=== PATIENT | female | born 1965 | race Caucasian/White ===

== ENCOUNTER 2018-01-13 13:48 | Outpatient (REF) | payer OTHER, SELFPAY ==
[2018-01-13 19:54] LABS: Iron 94 ug/dL (50-175); Total Iron Binding Capacity 280 ug/dL (250-450); Transferrin Sat 34 % (15-50)
[2018-01-13 20:08] LABS: TSH 2.47 uIU/mL (0.358-3.74)
[2018-01-13 20:16] LABS: GGT 191 U/L (5-55)
[2018-01-15 10:43] LABS: Hep A Total Ab w Rflx IgM Negative (NEGAT); Hep B Core Antibody Negative (NEGAT)
[2018-01-15 10:50] LABS: Hepatitis C Ab w Rflx HCV PCR Negative (NEGAT)
== END 2018-01-13 14:08 ==
LOC: NCHCN 13:48
PROVIDERS: PCP Family Medicine; Visit Provider Nurse Practitioner Family
DX: E78.1 Pure hyperglyceridemia (principal); R73.9 Hyperglycemia, unspecified; N94.10 Unspecified dyspareunia; N89.8 Other specified noninflammatory disorders of vagina; Z87.19 Personal history of other diseases of the digestive system
CPT/HCPCS: 86704; 86709; 86803; 82977; 83540; 83550; 84443

== ENCOUNTER 2018-01-16 10:23 | Outpatient (REF) | payer OTHER, SELFPAY | END 2018-01-16 10:43 | LOC: LBN 10:23 | PROVIDERS: PCP Family Medicine; Visit Provider Nurse Practitioner Family | DX: R39.15 Urgency of urination (principal) | CPT/HCPCS: 87086 ==

== ENCOUNTER 2018-02-10 00:56 | Outpatient (CLI) | payer OTHER, SELFPAY ==
--- NOTE | 2018-02-10 07:18 | DI.US_ITS ---
SYMPTOM/DIAGNOSIS: ELEVATED LIVER ENZYMES R74.8 ABDOMEN ULTRASOUND: Comparison is made with 08/18/13. The liver shows increased echogenicity and decreased through transmission, consistent with fatty infiltration. The posterior portions of the liver are not well seen. The liver echogenicity appeared normal on the previous exam. No focal liver lesions or biliary dilatation is seen. The gallbladder appears normal, without evidence of stones or wall thickening. The pancreas, kidneys, spleen and aorta are unremarkable. IMPRESSION: Hepatic steatosis.
== END 2018-02-10 01:16 ==
PROVIDERS: PCP Family Medicine; Visit Provider Nurse Practitioner Family
DX: R74.8 Abnormal levels of other serum enzymes (principal); K76.0 Fatty (change of) liver, not elsewhere classified
CPT/HCPCS: 76700

== ENCOUNTER 2018-11-19 10:24 | Outpatient (REF) | payer OTHER, SELFPAY ==
[2018-11-19 20:59] LABS: Abs Immature Grans 0.03 k/cumm (0.0-0.09); Absolute Basophil Count 0.07 k/cumm (0.0-0.2); Absolute Eosinophil Count 0.39 k/cumm (0.0-0.7); Absolute Lymphocyte Count 2.84 k/cumm (1.2-3.4); Absolute Monocyte Count 0.52 k/cumm (0.11-0.7); Absolute Neutrophil Count 4.71 k/cumm (1.2-6.7); Basophils % 0.8; Eosinophils % 4.6; HCT 46.1 % (36.0-46.0); HGB 15.3 g/dL (12.0-15.5); Immature Grans % 0.4; Lymphocytes % 33.2; Mean Corp. HGB Concentration 33.2 g/dL (32.0-36.0); Mean Corpuscular Hemoglobin 29.2 pg (27.0-33.0); Mean Platelet Volume 12.1 fL (8.0-11.0); Monocytes % 6.1; Neutrophils % 54.9; Platelet Count 190 x1000/uL (130-400); RBC 5.24 m/cumm (4.00-5.20); RBC Distribution Width 12.6 % (11.7-14.6); White Blood Cell Count 8.56 k/cumm (4.4-10.8)
[2018-11-19 21:17] LABS: ALT 79 U/L (14-59); AST 38 U/L (15-37); Albumin 3.8 g/dL (3.4-5.0); Alkaline Phosphatase 116 U/L (46-116); Bilirubin, Direct 0.05 mg/dL (0.00-0.20); Bilirubin, Total 0.3 mg/dL (0.2-1.0); Glucose 122 mg/dL (70-100); Total Protein 6.8 g/dL (6.4-8.2)
[2018-11-19 21:56] LABS: Calculated LDL 159 mg/dL; Cholesterol 278 mg/dL (50-200); HDL Cholesterol 44 mg/dL (40-60); Triglyceride 375 mg/dL (30-150)
== END 2018-11-19 10:44 ==
LOC: NCHCN 10:24
PROVIDERS: PCP Nurse Practitioner Family; Visit Provider Nurse Practitioner Family
DX: Z00.00 Encounter for general adult medical examination without abnormal findings (principal); E78.1 Pure hyperglyceridemia; R73.9 Hyperglycemia, unspecified; R74.8 Abnormal levels of other serum enzymes; G47.00 Insomnia, unspecified; Z72.0 Tobacco use
CPT/HCPCS: 80061; 80076; 82947; 85025

== ENCOUNTER 2019-03-16 01:31 | Outpatient (CLI) | payer OTHER, SELFPAY ==
--- NOTE | 2019-03-16 07:45 | DI.MAMMO_ITS ---
EXAM: MG MAMMO SCREENING CLINICAL HISTORY: SCREENING, [facility], Z00.00. TECHNIQUE: Bilateral full field digital CC and MLO mammographic images were obtained with 3D tomosyn thesis and utilizing computer aided detection (CAD). COMPARISON: Available for comparison. FINDINGS: Masses/Architectural Distortion: None seen. Microcalcifications: No suspicious pleomorphic-type are seen. Skin Thickening/Nipple Retraction: None. IMPRESSION: 1. No significant interval change with no specific features of malignancy noted. 2. Unless there is more urgent need, screening mammography is recommended, as per [employer] guidelines. ACR BI-RAD Category- 1 Negative Breast Density - Category B - Scattered areas of fibroglandular density A negative radiographic report should not delay biopsy if a dominant or clinically suspicious mass is present. Up to ten percent of cancers are not identified on mammography. A negative report may reinforce clinical impression. Adenosis and dense breasts may obscure an underlying neoplasm. False positive reports average 6 to 10%. Patient will receive a letter notifying them of these results.
== END 2019-03-16 01:51 ==
PROVIDERS: PCP Nurse Practitioner Family; Visit Provider Nurse Practitioner Family
DX: Z12.31 Encounter for screening mammogram for malignant neoplasm of breast (principal)
CPT/HCPCS: 77063; 77067

== ENCOUNTER 2019-06-25 19:44 | Outpatient (CLI) | payer OTHER, SELFPAY ==
[2019-06-26 17:33] LABS: COVID-19 RT-PCR UVMMC Result Negative (Negative)
== END 2019-06-25 20:04 ==
PROVIDERS: PCP Nurse Practitioner Family; Visit Provider Physician Assistant
DX: R50.9 Fever, unspecified (principal)
CPT/HCPCS: U0003

== ENCOUNTER 2019-09-17 15:00 | Outpatient (REF) | payer OTHER, SELFPAY ==
[2019-09-23 22:34] LABS: SARS-CoV-2 RNA Undetected (Undetected); SARS-CoV-2 Specimen Source Nasopharynx
== END 2019-09-17 15:20 ==
LOC: NCHCN 15:00
PROVIDERS: PCP Nurse Practitioner Family; Visit Provider Nurse Practitioner Family
DX: Z11.59 Encounter for screening for other viral diseases (principal); Z20.828 Contact with and (suspected) exposure to other viral communicable diseases
CPT/HCPCS: U0003

== ENCOUNTER 2019-12-01 08:48 | Outpatient (REF) | payer OTHER, SELFPAY ==
[2019-12-01 19:47] LABS: Calculated LDL 52 mg/dL (<100); Cholesterol 127 mg/dL (<200); Glucose 111 mg/dL (74-106); HDL Cholesterol 55 mg/dL (40-60); Triglyceride 101 mg/dL (<150)
== END 2019-12-01 09:08 ==
LOC: NCHCN 08:48
PROVIDERS: PCP Nurse Practitioner Family; Visit Provider Nurse Practitioner Family
DX: Z00.00 Encounter for general adult medical examination without abnormal findings (principal); Z13.220 Encounter for screening for lipoid disorders; Z13.1 Encounter for screening for diabetes mellitus
CPT/HCPCS: 80061; 82947

== ENCOUNTER 2020-04-24 11:39 | Outpatient (REF) | payer OTHER, SELFPAY ==
[2020-04-24 11:46] LABS: Abs Immature Grans 0.04 10^3/uL (0.0-0.06); Absolute Basophil Count 0.05 10^3/uL (0.0-0.2); Absolute Eosinophil Count 0.21 10^3/uL (0.0-0.7); Absolute Lymphocyte Count 2.15 10^3/uL (1.2-3.4); Absolute Monocyte Count 0.53 10^3/uL (0.1-0.8); Absolute Neutrophil Count 6.46 10^3/uL (1.2-6.7); Basophils % 0.5; Eosinophils % 2.2; HCT 41.6 % (36.0-46.0); HGB 13.7 g/dL (11.2-15.7); Immature Grans % 0.4; Lymphocytes % 22.8; MCH 29.5 pg (27.0-33.0); MCHC 32.9 % (32.0-36.0); MCV 89.5 fL (80-95); MPV 11.7 fL (8.0-11.0); Monocytes % 5.6; Neutrophils % 68.5; Nucleated RBC 0 %; Platelet Count 166 10^3/uL (130-400); RBC 4.65 10^6/uL (3.93-5.22); RDW 12.3 % (11.7-14.6); RDW-SD 40.5 fL; WBC 9.44 10^3/uL (4.4-10.8)
[2020-04-24 11:49] LABS: Hemoglobin A1C 6.3 % (<5.7)
[2020-04-24 12:04] LABS: ALT 91 U/L (14-59); AST 35 U/L (15-37); Albumin 3.7 g/dL (3.4-5.0); Alkaline Phosphatase 124 U/L (46-116); BUN 15 mg/dL (7-18); Bilirubin, Total 0.4 mg/dL (0.2-1.0); Calculated LDL 121 mg/dL (<100); Chloride 102 mmol/L (98-107); Cholesterol 204 mg/dL (<200); Estimated GFR 57.78 (mL/min/1.73m2); Glucose 192 mg/dL (74-106); HDL Cholesterol 46 mg/dL (40-60); Potassium 4.1 mmol/L (3.5-5.1); Sodium 139 mmol/L (136-145); Total Protein 6.9 g/dL (6.4-8.2); Triglyceride 185 mg/dL (<150)
[2020-04-24 12:17] LABS: Amylase 543 U/L (25-115)
[2020-04-24 12:45] LABS: Lipase 9622 U/L (73-393)
== END 2020-04-24 11:40 | disposition home or self-care (01) ==
LOC: NCHCN 11:39
PROVIDERS: PCP Nurse Practitioner Family; Visit Provider Family Medicine
DX: E78.1 Pure hyperglyceridemia (principal); R73.03 Prediabetes; K76.0 Fatty (change of) liver, not elsewhere classified; R10.9 Unspecified abdominal pain
CPT/HCPCS: 80053; 80061; 83690; 82150; 83036; 85025

== ENCOUNTER 2020-04-24 17:40 | Inpatient (IN) | payer OTHER, SELFPAY ==
--- NOTE | 2020-04-24 | DI.CT_ITS ---
EXAM: CT ABDOMEN PELVIS W CLINICAL HISTORY: pain, high lipase/LFTs, h/o pancreatitis. TECHNIQUE: Imaging Protocol: Axial computed tomography images with coronal and sagittal reformatted images were created and reviewed CONTRAST MATERIAL: Intravenous: Omnipaque 350 Contrast volume:100 ml Oral: no COMPARISON: US US ABDOMEN from 02/10/2018 US US ABDOMEN from 02/10/2018 FINDINGS: ABDOMEN: Lung Bases: Minimal scarring or atelectasis. Normal heart size. Liver: Severe hepatic steatosis. No measurable mass. Gallbladder and biliary tract: No radiodense calculus or dilation. Pancreas: Normal density, no abnormal calcifications. Mild inflammation around the head. Mild dilat ation of the pancreatic duct. No mass or cyst. Spleen: Normal. Kidneys: Normal size, contour and axis. No radiodense stones or obstructive uropathy. No masses seen. Adrenal glands: No masses seen. Abdominal Aorta: Abdominal portion non-dilated. Small fatty containing umbilical hernia. Small fatty containing hernia superior to the umbilicus. PELVIS: Bladder: Symmetric distention, no gross wall thickening. Bowel: Normal appendix. Normal quantity of stool. Mild sigmoid diverticulosis. No evidence of dive rticulitis. No obstruction or bowel wall thickening. Peritoneal cavity: No ascites, collection or mesenteric inflammatory response. Bones: Sclerosis inferior right SI joint. No destructive lesions. Mild degenerative changes in the spine. Reproductive organs: Within normal limits. Lymph nodes: Unremarkable. Impression: Mild pancreatitis involving the head of the pancreas. Mild pancreatic ductal dilatation. Severe fat ty infiltration of the liver. No visible gallstones. Fatty containing umbilical hernias. RADIATION DOSE DELIVERED: 1,148.86mGy.cm Total DLP DATA REPOSITORY: All CT scans at this facility are submitted to the National Radiology Data Registry (NRDR) Dose Index Registry (DIR) with the [employer] (ACR). RADIATION OPTIMIZATION: All CT scans at this facility use at least one of these dose optimization te chniques: automated exposure control; mA and/or kV adjustment per patient size (includes targeted exa ms where dose is matched to clinical indication); or iterative reconstruction.
[2020-04-24 17:42] VITALS: BP 139/78; PULSE 76; RESP 16; TEMP 36.7; O2SAT 97
[2020-04-24 17:57] VITALS: BP 130/78; PULSE 76; RESP 16; TEMP 36.7; O2SAT 97
[2020-04-24] MEDS: Enoxaparin 40 MG/0.4 ML SYR SC (18:23)
--- NOTE | 2020-04-24 18:38 | W.PM.HP.N ---
Date of service: 04/24/20 Time of Service: 18:39 Assessment and Plan Assessment and plan (1) Pancreatitis: Status: Acute Assessment and plan: Patient is being direct admitted with acute pancreatitis given progressive pain and inability to tolerate p.o. fluids and food. Uncomfortable diagnosis of pancreatitis given her history as well as the elevated lipase and amylase. She still has her gallbladder and gallstone pancreatitis is the most likely diagnosis given that she does not drink alcohol. A passed stone was presumed to cause a previous episode as she did have 3 to 4 mm dilation of pancreatic duct on ultrasound at that time. Triglycerides were never high enough to trigger pancreatitis, only 183 this morning. She has taken no new medication could be implicated. I have ordered a CT scan I will help assess severity of pancreatitis and also assess for related complications such as a pseudocyst that could obstruct her pancreatic duct and lead to this second episode. I will also plan to get an abdominal ultrasound in the morning if we do not see clear stones on the CT scan. We will monitor her blood count and LFTs to see if there is a progression of obstructive picture. She is n.p.o. and will give her maintenance IV fluids overnight after a bolus right now before her CAT scan. (2) Nonalcoholic fatty liver disease: Status: Acute Assessment and plan: The patient does have some chronic abnormal LFTs with a previous diagnosis of nonalcoholic fatty liver disease. The elevated ALT and alkaline phosphatase thus may be chronic. (3) Essential hypertriglyceridemia: Status: Acute Assessment and plan: As above, this is mild and we cannot blame her pancreatitis on this. (4) Insomnia: Status: Inactive Assessment and plan: Zolpidem as needed. Patient was also recently diagnosed with severe obstructive sleep apnea. If she has a home CPAP unit we will try to get this for her to use here. (5) DVT prophylaxis: Status: Acute Assessment and plan: Lovenox (6) Discharge planning issues: Status: Acute Assessment and plan: Patient is currently stable on the medical floor. Should be able discharge her once were able to advance her diet if pain improves with bowel rest. History of Present Illness History of Present Illness Chief Complaint: Abdominal pain Narrative: 54-year-old woman with history of fatty liver disease and episode of pancreatitis in 2013 who presents with 5 days of progressive epigastric pain and anorexia. The pain started on the Friday prior to admission, April 21. Pain is epigastric, stabbing, and radiating around to the back bilaterally. No radiation up to the chest or down to the pelvis. Associated with abdominal bloating. Pain is worse with eating any food, no particular pattern noted. Judy tried to take Tums and Prilosec because initially she thought it was gas, but neither of these helped. The pain started as mild to moderate, but has become more severe today. She has not been able to eat anything and has had very little drink over the past 24 hours. She has not had nausea or vomiting. She did have some chills over the weekend, but no fevers. This pain is very similar to her episode of pancreatitis in 2013 when she was admitted to this hospital. That episode resolved with conservative care. She was told she likely passed a gallstone, though the stone was never seen on imaging. She does not drink any alcohol. She is a former smoker, but quit over a year ago. She denies any trauma to the abdomen. She has a history of hypertriglyceridemia, but they have never been over 500, with the highest documented level was 338 in 2018. She denies any recent change in medication. She was seen this morning by her primary care physician Estephania Kate. Labs were significant for a lipase of 9622 and amylase of 543. Alkaline phosphatase was mildly elevated 124 and her ALT was 91. Her white blood cell count was 9.44 with 68.5% neutrophils. Review of Systems Constitutional Constitutional: Reports anorexia, Denies chills, Denies fever(s), Reports headache(s), Reports lethargy and Denies weakness Eyes Eyes: Denies change in vision and Denies irritation ENT Ears, Nose, Mouth, and Throat: Denies dysphagia, Denies dizziness, Reports headache(s), Denies nasal congestion, Denies nasal discharge and Denies sore throat Cardiovascular Cardiovascular: Denies chest pain, Denies palpitations, Denies dyspnea and Denies orthopnea Respiratory Respiratory: Denies cough, Denies excessive phlegm production, Denies dyspnea and Denies wheezing Gastrointestinal Gastrointestinal: Reports belching, Denies melena, Denies hematochezia, Denies constipation, Denies dysphagia, Denies heartburn, Denies diarrhea and Denies vomiting Genitourinary Genitourinary: Denies hematuria, Denies dysuria and Denies urinary incontinence Musculoskeletal Musculoskeletal: Denies arthralgias Integumentary/Breasts Skin/Breast: Denies rash and Denies skin ulcer Neurologic Neurologic: Denies dizziness, Reports headache(s), Denies sensory deficit and Denies weakness Psychiatric Psychiatric: Denies mood swings Endocrine Endocrine: Denies palpitations Hematologic/Lymphatic Hematologic/Lymphatic: Denies easy bleeding Allergic/Immunologic Allergic/Immunologic: Denies wheezing PFSH Medical History (Updated 04/24/20 @ 19:00 by Robby No) Dyspareunia, female Insomnia Migraine OCCASIONAL; MSG Nonalcoholic fatty liver disease Pancreatitis a. First episode, uncertain etiology. Tobacco use Vaginal atrophy Surgical History (Updated 04/24/20 @ 18:52 by Robby No) section x 3 Tonsillectomy and adenoidectomy Family History (Updated 04/24/20 @ 18:55 by Robby No) Mother Essential hypertension Anxiety Depression Mental disorder Chronic obstructive lung disease Father Heart disease Myocardial infarction Grandfather Heart disease Grandmother Neoplasm LUNG Son Diabetes Essential hypertension Pancreatitis, alcoholic, acute Social History (Updated 04/24/20 @ 19:10 by Robby No) Smoking/Tobacco Use Status: Former Tobacco Use Quit Date: 12/16/18 Smoking risk assessment performed?: Yes Alcohol Intake: current Alcohol Intake frequency: holidays/special occasions only Alcohol type: beer and wine Drug use: Never Substance use type: does not use Do you feel safe at home: Yes Do you feel safe in your relationship?: Yes Additional Social history: Patient lives with her and son. 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 History History 4 Para 3 Hx # Term Pregnancies Multiple births Hx # Pregnancies Ectopic pregnancies AB induced Hx Number of Living Children AB spontaneous Meds Home Medications and Allergies Home Medications Medication Instructions Recorded Confirmed Type zolpidem 5 mg PO HS PRN #90 tab 03/17/17 04/24/20 History estradiol [Vagifem] 10 mcg VAGINAL DIRECTED 04/24/20 04/24/20 History Allergies Allergy/AdvReac Type Severity Reaction Status Date / Time erythromycin base AdvReac Intermediate vomit Verified 04/24/20 17:49 Exam Narrative Exam Narrative: GEN: Alert and oriented, pleasent and cooperative, gives linear history. No acute distress at rest. HEENT: Head atraumatic. Conjunctiva clear, no icterus. PEERL, EOMI. no rhinorrhea. MMM, OP benign. Neck is supple with no masses or lymphadenopathy, trachea midline LUNGS: CTAB with normal effort CV: RRR with no murmurs, gallops, or rubs. ABD: +BS. soft, with mild gaseous distention. Tender across the epigastrium, no guarding or rebound. Mild suprapubic tenderness. EXT: no cyanosis, clubbing, or edema MSK: No joint redness or swelling NEURO: CN 2-12 grossly intact. Normal movement of 4 extremities. Normal speech and coordination SKIN: No rashs or open wounds. PSYCH: normal mood and affect Results See lab results from this morning in the record, pertinent abnormalities noted in HPI. Last Vital Signs Temp 36.7 C 04/24/20 17:57 Pulse 76 04/24/20 17:57 Resp 16 04/24/20 17:57 BP 130/78 04/24/20 17:57 Pulse Ox 97 04/24/20 17:57 COVID-19 Screening Have you, or household traveled for leisure in last 14 days?: No Had IN PERSON contact w/suspected or confirmed C-19 person: No
[2020-04-24] MEDS: Omnipaque 350 MG/ML 100 ML BTL IJ (19:04)
[2020-04-24] MEDS: Normal Saline - Diluent 50 ML VIAL IV (19:05)
[2020-04-24 19:39] LABS: Influenza A PCR Negative (Negative); Influenza B PCR Negative (Negative); RSV PCR Negative (Negative)
--- NOTE | 2020-04-24 19:39 | DI.VRAD_ITS ---
PROCEDURE INFORMATION: Exam: CT Abdomen And Pelvis With Contrast Exam date and time: 04/24/2020 7:00 PM Age: 54 years old Clinical indication: Pain and abnormal findings; Abnormal lab test; Elevated lipase and other: Elevated lfts; Abdominal pain; Generalized; Prior surgery; Surgery date: 6+ months; Surgery type: 3 c-sections; Patient HX: H/o pancreatitis TECHNIQUE: Imaging protocol: Computed tomography of the abdomen and pelvis with contrast. Total images: 1192 Radiation optimization: All CT scans at this facility use at least one of these dose optimization techniques: automated exposure control; mA and/or kV adjustment per patient size (includes targeted exams where dose is matched to clinical indication); or iterative reconstruction. Contrast material: OMNIPAQUE 350; Contrast volume: 100 ml; Contrast route: INTRAVENOUS (IV); COMPARISON: SC US ABDOMEN 02/10/2018 1:19 PM FINDINGS: Lungs: Patchy scarring or atelectasis in the lung bases. Heart: Mild cardiomegaly. Mediastinal space: The visualized distal esophagus is normal. Liver: Normal contour. No mass lesions. No intrahepatic biliary ductal dilatation. Moderate fatty infiltration of the liver. Mild fatty sparing around the gallbladder fossa . Gallbladder and bile ducts: Normal. No calcified stones. No ductal dilation. Pancreas: There is faint stranding around the pancreatic head suspicious for mild pancreatitis. No fluid collections. No signs of pancreatic necrosis. Slight dilatation of the pancreatic duct measuring 4 mm diameter at the pancreatic neck. No obstructive stones or mass lesions are evident. Spleen: Normal. No splenomegaly. Adrenal glands: Normal. No adrenal mass. Kidneys and ureters: No acute abnormalities. No hydronephrosis or hydroureter. No urinary tract stones are identified. Stomach and bowel: The stomach is largely contracted without gross abnormality. The small bowel is normal with no evidence of obstruction. Mild distal colonic diverticulosis without focal changes of diverticulitis. Question slight wall thickening in the distal descending colon and sigmoid colon which may relate to its contracted status, cannot exclude mild colitis in these distributions. Appendix: The appendix is normal in caliber and demonstrates no evidence of appendicitis. Intraperitoneal space: No free fluid or air. Vasculature: No acute process. No abdominal aortic aneurysm. Lymph nodes: No adenopathy. Urinary bladder: Unremarkable as visualized. Reproductive: Unremarkable as visualized. Bones/joints: No acute osseous abnormalities. Asymmetric right SI joint sclerosis and marginal spurring, likely osteoarthritic in nature. Soft tissues: Small fatty umbilical hernia and small supraumbilical fatty hernia with no bowel herniation or strangulation. IMPRESSION: 1. Faint peripancreatic stranding around the pancreatic head suspicious for mild pancreatitis. No evidence of pancreatic necrosis. No fluid collections. Slight pancreatic ductal dilatation. 2. Moderate fatty infiltration of the liver with sparing around the gallbladder fossa. 3. Mild cardiomegaly without evidence of decompensation. 4. Question slight colonic wall thickening in the descending colon and rectum although this may relate to its contracted status. Cannot exclude a mild element of colitis. 5. Small fatty umbilical and supraumbilical hernias with no bowel herniation or strangulation. Dictated and Authenticated by: Robby Herrera MD. Ordering:JARETH Bustamante MD
[2020-04-24 19:41] LABS: COVID-19 PCR Negative (Negative)
[2020-04-24] MEDS: Lactated Ringers 1,000 ML 500 ML IV (20:02)
[2020-04-24] MEDS: MORPHine 2 MG/ML SYR IVP ×2 (20:07→22:34)
[2020-04-24] MEDS: POTASSIUM CHLORIDE/D5-0.45NACL 1,000 ML 30 MEQ IV (21:15)
[2020-04-24 23:50] VITALS: BP 114/69; PULSE 63; RESP 17; TEMP 36; O2SAT 95
[2020-04-25] MEDS: MORPHine 2 MG/ML SYR IVP ×2 (02:23→07:58)
[2020-04-25] MEDS: Zolpidem 5 MG TAB PO ×2 (02:27→21:02)
--- NOTE | 2020-04-25 06:00 | DI.US_ITS ---
EXAM: US ABDOMEN CLINICAL HISTORY: pancreatitis, biliary stones? TECHNIQUE: Ultrasound abdomen performed using standard protocol. COMPARISON: CT CT ABDOMEN PELVIS W from 04/24/[address] ABDOMEN PELVIS W from 04/24/2020 FINDINGS: The liver shows marked fatty infiltration. No focal liver lesions or biliary dilatation is seen. No gallstones or gallbladder wall thickening is present. The kidneys and spleen are unremarkable. The re is no visible abnormality of the pancreas. There is no ascites. IMPRESSION: Fatty liver. No evidence of gallstones. No biliary dilatation. DATA REPOSITORY:
[2020-04-25 06:35] LABS: Abs Immature Grans 0.03 10^3/uL (0.0-0.06); Absolute Basophil Count 0.04 10^3/uL (0.0-0.2); Absolute Eosinophil Count 0.29 10^3/uL (0.0-0.7); Absolute Lymphocyte Count 2.86 10^3/uL (1.2-3.4); Absolute Monocyte Count 0.58 10^3/uL (0.1-0.8); Absolute Neutrophil Count 4.41 10^3/uL (1.2-6.7); Basophils % 0.5; Eosinophils % 3.5; HCT 38.7 % (36.0-46.0); HGB 13.1 g/dL (11.2-15.7); Immature Grans % 0.4; Lymphocytes % 34.8; MCH 29.6 pg (27.0-33.0); MCHC 33.9 % (32.0-36.0); MCV 87.6 fL (80-95); MPV 11.2 fL (8.0-11.0); Monocytes % 7.1; Neutrophils % 53.7; Nucleated RBC 0 %; Platelet Count 157 10^3/uL (130-400); RBC 4.42 10^6/uL (3.93-5.22); RDW 12.3 % (11.7-14.6); RDW-SD 39.8 fL; WBC 8.21 10^3/uL (4.4-10.8)
[2020-04-25 07:01] LABS: ALT 66 U/L (14-59); AST 29 U/L (15-37); Albumin 3.2 g/dL (3.4-5.0); Alkaline Phosphatase 108 U/L (46-116); Anion Gap 9.2 mmol/L (3-11); BUN 15 mg/dL (7-18); Bilirubin, Total 0.5 mg/dL (0.2-1.0); CO2 25.8 mmol/L (21.0-32.0); CREATININE 0.9 mg/dL (0.55-1.02); Calcium 8.8 mg/dL (8.5-10.1); Chloride 104 mmol/L (98-107); Glucose 123 mg/dL (74-106); Potassium 4.1 mmol/L (3.5-5.1); Sodium 139 mmol/L (136-145); Total Protein 6.6 g/dL (6.4-8.2)
[2020-04-25 07:45] VITALS: BP 115/63; PULSE 67; RESP 17; TEMP 36.4; O2SAT 96
--- NOTE | 2020-04-25 09:09 | INITIAL_ITS ---
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 CURRENT FUNCTIONAL STATUS:: Judy is lying in bed when CM meets with her. She is pleasant in interaction and forthcoming with information. She reports eating jell-o today, but vomitting it back up, as well as not understanding her treatment plan. CM talked to MD, RNCC and Judy's daughter, Martha re: treatment plan, current medications and idiopathic pancreatitis. Dr. Amaya connected with Judy and Martha and Carmen; RNCC discussed current medications orders with Judy to support her sleep. CM continues to follow. ADVANCE DIRECTIVES:: None on file at [facility]. Has patient been provided with info about the portal/API?: Yes Did the patient sign up for the portal?: Yes (Previously) CODE STATUS:: Full Code INSURANCE COVERAGE / FINANCIAL ISSUES:: [employer] CURRENT HOME/COMMUNITY SERVICES/EQUIPMENT:: No current services or equipment. PRIMARY CARE PHYSICIAN:: Sanaz Escobar NP POTENTIAL DISCHARGE NEEDS:: Follow up appointment with PCP. PATIENT/FAMILY EDUCATION NEEDS:: Review discharge instructions, discuss Ask Me Three. ANTICIPATED BARRIERS TO DISCHARGE:: None identified. TRANSPORTATION:: Via private vehicle with family. PLAN:: Judy will return home when ready per MD. She will follow up with her PCP and plan of care as prescribed. She will transport via private vehicle with family.
[2020-04-25] MEDS: Ondansetron 4 MG/2 ML VIAL IVP (09:24)
[2020-04-25] MEDS: Normal Saline Flush 10 ML SYR IVP ×2 (09:25→13:10)
--- NOTE | 2020-04-25 12:48 | W.PM.PROGNOT ---
Date of Service Date of service: 04/25/20 Time of Service: 12:48 Assessment and Plan Assessment and plan (1) Nonalcoholic fatty liver disease: Status: Acute Assessment and plan: Known dx. ALT 91 on admission (previously as high as 147 in 2018). Now 66. AST and Bili are normal. (2) Pancreatitis: Status: Acute Assessment and plan: Abd US w/o gallstones or ductal dilitation. OK to advance to clear liquids as tolerated. PRN morphine is controlling pain. Zofran or compazine for nausea. Qualifiers: Chronicity: acute Pancreatitis type: idiopathic Acute pancreatitis complication: no infection or necrosis Qualified Code(s): K85.00 - Idiopathic acute pancreatitis without necrosis or infection (3) Essential hypertriglyceridemia: Status: Acute Assessment and plan: Triglycerides 185. Previous high in [facility] records of 375 in 11/2018. Encourage low fat / Heart Healthy diet. Subjective Subjective Patient reports: feels better, pain is less, nausea and afebrile; denies vomiting and shortness of breath Interval history since last seen: She tried a bite of jello at lunch and developed nausea. Exam Const General: cooperative and no acute distress Nutritional Appearance: obese Orientation: alert and oriented x3 Resp Effort & Inspection: normal respiratory effort Auscultation: clear to auscultation bilaterally Cardio Rate: regular rate Rhythm: regular rhythm Heart Sounds: S1 normal and S2 normal GI Inspection: obesity Palpation: soft and tender in the epigastrum; with no rebound tenderness Extrem General: no pedal edema and no calf tenderness Objective Last Vital Signs Temp 36.4 C L 04/25/20 07:45 Pulse 67 04/25/20 07:45 Resp 17 04/25/20 07:45 BP 115/63 04/25/20 07:45 Pulse Ox 96 04/25/20 07:45 Laboratory Results - last 24 hr 04/24/20 04/25/20 04/25/20 18:40 06:18 06:18 WBC 8.21 RBC 4.42 Hgb 13.1 Hct 38.7 MCV 87.6 MCH 29.6 MCHC 33.9 RDW 12.3 Plt Count 157 MPV 11.2 H Immature Gran % 0.4 Neutrophils % 53.7 Lymphocytes % 34.8 Monocytes % 7.1 Eosinophils % 3.5 Basophils % 0.5 Nucleated RBC % 0 Absolute Neutrophils 4.41 Absolute Lymphocytes 2.86 Absolute Monocytes 0.58 Absolute Eosinophils 0.29 Absolute Basophils 0.04 Sodium 139 Potassium 4.1 Chloride 104 Carbon Dioxide 25.8 Anion Gap 9.2 BUN 15 Creatinine 0.9 Estimated GFR/1.73 m2 >= 60.00 Glucose 123 H Calcium 8.8 Total Bilirubin 0.5 AST 29 ALT 66 H Alkaline Phosphatase 108 Total Protein 6.6 Albumin 3.2 L COVID-19 Source Nasopharyx SARS-CoV-2 (PCR) Negative Influenza Type A (PCR) Negative Influenza Type B (PCR) Negative RSV (PCR) Negative
[2020-04-25] MEDS: Prochlorperazine 10 MG/2 ML VIAL IVP (13:09)
[2020-04-25] MEDS: POTASSIUM CHLORIDE/D5-0.45NACL 1,000 ML 120 MEQ IV ×2 (13:23→21:02)
[2020-04-25 15:26] VITALS: BP 125/63; PULSE 69; RESP 18; TEMP 36.9; O2SAT 96
--- NOTE | 2020-04-25 15:38 | PHA.REVIEW ---
Pharmacy Admission Review - Admission Clinical Review (Last Updated 04/24/20 @ 18:55 by Robby No) Discharge planning issues (Acute) DVT prophylaxis (Acute) Nonalcoholic fatty liver disease (Acute) Pancreatitis (Acute 08/23/13) Essential hypertriglyceridemia (Acute) erythromycin base Adverse Reaction (Intermediate, Verified 04/24/20 17:49) vomit Height 5 ft 3 in Weight 94.347 kg - Renal Dosing Renal Dosing: BUN 15 mg/dL (7-18) 04/25/20 06:18 Creatinine 0.9 mg/dL (0.55-1.02) 04/25/20 06:18 Medications needing adjustments: Reviewed - Anticoagulation Anticoagulation: Hgb 13.1 g/dL (11.2-15.7) 04/25/20 06:18 Hct 38.7 % (36.0-46.0) 04/25/20 06:18 Plt Count 157 10^3/uL (130-400) 04/25/20 06:18 Creatinine 0.9 mg/dL (0.55-1.02) 04/25/20 06:18 DVT Prohphylaxis: Reviewed Medications: Enoxaparin - Opiate Usage Evaluate Pain Scale/Pains Meds: Reviewed Scheduled Bowel Reg ordered if on Opiates?: No (monitor) - Relevant Labs Sodium 139 mmol/L (136-145) 04/25/20 06:18 Potassium 4.1 mmol/L (3.5-5.1) 04/25/20 06:18 Chloride 104 mmol/L (98-107) 04/25/20 06:18 Electrolytes, C-Reactive P, ESR: Reviewed (KCl/D5-1/2NS currently running at 120mls/hr) - DM Control DM Control: Glucose 123 mg/dL (74-106) H 04/25/20 06:18 - Heart Failure/[place] EF%, DAQUAN's, B-Blockers, Diuretics: N/A - BP Control BP Control: Blood Pressure 125/63 Blood Pressure 115/63 If elevated: N/A - Qtc Review If Elevated: N/A - IV to PO Switch IV Medications: Reviewed - Home Meds Home Med List reviewed: Intervened Relevent Home Meds Not ordered & why?: Trazodone; Zolpidem was most recently filled in October of last year for a 5 day supply with directions that state take as needed while acclimating to CPAP, fills trazodone regularly -- dc'd zolpidem and added trazodone to home med list - Current meds Current Medication Order Review: Reviewed - Comments Comments/Follow Ups: advancing diet today, morphine PRN for pain control
--- NOTE | 2020-04-25 16:40 | CHAPLAIN ---
Judy was sitting up in bed when I visited. She said she is feeling better this afternoon. She's been in touch with her family. Her coworkers from [employer] have sent her thorne. I 'll continue to visit.
[2020-04-25] MEDS: Enoxaparin 40 MG/0.4 ML SYR SC (18:00)
[2020-04-25 23:45] VITALS: BP 124/74; PULSE 52; RESP 17; TEMP 36.2; O2SAT 97
[2020-04-26] MEDS: POTASSIUM CHLORIDE/D5-0.45NACL 1,000 ML 120 MEQ IV (05:02)
[2020-04-26 07:51] VITALS: BP 121/81; PULSE 61; RESP 18; TEMP 36.3; O2SAT 96
--- NOTE | 2020-04-26 09:26 | W.PM.DS.N ---
Date of service: 04/26/20 Time of Service: 09:26 DS: Diagnosis Discharge Diagnosis (1) Nonalcoholic fatty liver disease: Status: Acute (2) Pancreatitis: Status: Acute (3) Essential hypertriglyceridemia: Status: Acute Discharge Plan Disposition Patient Disposition: HOME Condition: Good Discharge Details Reason For Visit: PANCREATITIS Admit Date/Time: 04/24/20 17:40 Admit Provider: Robby No Attending Provider: Robby No Primary Care Provider: Sanaz Escobar Hospital Course Hospital Course: This is a 54-year-old woman with history of fatty liver disease and episode of pancreatitis in 2013 who presented with 5 days of progressive epigastric pain and anorexia. The pain started on the Friday prior to admission, April 21. Pain was epigastric, stabbing, and radiating around to the back bilaterally. No radiation up to the chest or down to the pelvis. Associated with abdominal bloating. Pain worse with eating any food, no particular pattern noted. Judy tried to take Tums and Prilosec because initially she thought it was gas, but neither of these helped. The pain started as mild to moderate, but has become more severe. She has not had nausea or vomiting. She did have some chills over the weekend, but no fevers. She described the pain as very similar to her episode of pancreatitis in 2013 when she was admitted to this hospital. That episode resolved with conservative care. She was told she likely passed a gallstone, though the stone was never seen on imaging. A dilitation of the common bile duct was noted. She does not drink any alcohol. She is a former smoker, but quit over a year ago. She denied any trauma to the abdomen. She has a history of hypertriglyceridemia, but they have never been over 500, with the highest documented level was 338 in 2018. She denied any recent change in medication. She has been taking oral estrogen for appx 6 months mainly for vaginal dryness. She was seen this morning by her primary care physician Estephania Kate. Labs were significant for a lipase of 9622 and amylase of 543. Alkaline phosphatase was mildly elevated 124 and her ALT was 91. Her white blood cell count was 9.44 with 68.5% neutrophils. After admission, CT abd and pelvis showed mild pancreatitis involving the head of the pancreas. Mild pancreatic ductal dilatation. Severe fatty infiltration of the liver. No visible gallstones. Fatty containing umbilical hernias. No common bile duct dilatation noted. US of abd showed fatty liver. No evidence of gallstones. No biliary dilatation With bowel rest, then advancement of diet to clear liquids, her pain resolved. On AM of discharge her diet was advanced further. On the AM of discharge she had not required any pain medication for 24 hours. Regarding the etiology of her pancreatitis, consideration given to estrogen as a factor. She is willing to stop oral estrogen; has found little benefit in improving her vaginal dryness. She will discuss alternatives with her PCP. Follow up with PCP in 1-2 weeks. Home Meds and New Rx's Prescriptions: Continued trazodone 100 mg tablet 100 mg PO HS RF: 0 Discontinued estradiol [Vagifem] 10 mcg Tablet 10 mcg VAGINAL DIRECTED RF: 0 Discharge Instructions Instructions: Pancreatitis (DC) Stand Alone Forms: Nursing Discharge Form Referrals: Sanaz Escobar [Primary Care Provider] - Activity:: Activity as Tolerated Equipment/Supplies:: No Equipment Needed Diet:: Heart Healthy Discharge Orders Discharge Orders: Discharge Order (Routine); Ordered 04/26/20 Ordered By: Miky Amaya DS: Summary Time Spent with Patient providing and/or coordinating discharge services: Greater than 30 minutes Status at Discharge Functional status at discharge: independent ambulation Overall status at discharge: patient is progressing back to baseline Mental Status: mental status grossly normal Speech and Movement: speech and movement normal Mood: congruent mood Affect: normal affect Exam Const General: cooperative and no acute distress Resp Effort & Inspection: normal respiratory effort Auscultation: clear to auscultation bilaterally Cardio Rate: regular rate Rhythm: regular rhythm Heart Sounds: S1 normal and S2 normal GI Inspection: normal to inspection Palpation: soft and nontender Extrem General: no pedal edema and no calf tenderness Psych Mental Status: mental status grossly normal Speech and Movement: speech and movement normal Mood: congruent mood Affect: normal affect DS: Data Vitals/I&O Vitals and I&O: Vital Signs Temperature 36.3 C L 04/26/20 07:51 Temperature Source Tympanic 04/26/20 07:51 Pulse 61 04/26/20 07:51 Pulse Rhythm Regular 04/26/20 08:48 Respiratory Rate 18 04/26/20 07:51 Respiratory Effort Non-Labored 04/26/20 08:48 Respiratory Depth Normal 04/26/20 08:48 Respiratory Pattern Normal 04/26/20 08:48 Blood Pressure 121/81 04/26/20 07:51 Pulse Oximetry 96 04/26/20 07:51 Oxygen Delivery Method Room Air 04/26/20 07:51 Oxygen Flow Rate 0 04/26/20 07:51 Fraction of Inspired Oxygen (FIO2) 21 04/25/20 21:00 Pain Level 0 04/25/20 15:26 Intake & Output 04/25/20 04/25/20 04/26/20 11:59 23:59 11:59 Intake Total 832 / 2458 1626 / 2458 1210 / 1210 Output Total 600 / 1999 1400 / 1999 1300 / 1300 Balance 232 / 458 226 / 458 -90 / -90 Intake: IV 832 / 2398 1566 / 2398 960 / 960 Oral 60 / 60 250 / 250 Output: Urine 600 / 1999 1400 / 1999 1300 / 1300 Other: Urine Color Yellow Yellow Yellow Urine Appearance Clear Clear Clear Urine Odor None Normal Comment concentrated odor Voiding Methods Toilet Toilet [facility]ile[facility] Medical History Dyspareunia, female Insomnia Migraine OCCASIONAL; MSG Nonalcoholic fatty liver disease Pancreatitis a. First episode, uncertain etiology. Tobacco use Vaginal atrophy Surgical History section x 3 Tonsillectomy and adenoidectomy Family History Mother Essential hypertension Anxiety Depression Mental disorder Chronic obstructive lung disease Father Heart disease Myocardial infarction Grandfather Heart disease Grandmother Neoplasm LUNG Son Diabetes Essential hypertension Pancreatitis, alcoholic, acute Social History Smoking/Tobacco Use Status: Former Tobacco Use Quit Date: 12/16/18 Smoking risk assessment performed?: Yes Alcohol Intake: current Alcohol Intake frequency: holidays/special occasions only Alcohol type: beer and wine Drug use: Never Substance use type: does not use Do you feel safe at home: Yes Do you feel safe in your relationship?: Yes Additional Social history: Patient lives with her and son. 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 History History 4 Para 3 Hx # Term Pregnancies Multiple births Hx # Pregnancies Ectopic pregnancies AB induced Hx Number of Living Children AB spontaneous
--- NOTE | 2020-04-26 10:27 | PDOC.CMDIS ---
LACE Index Scoring Tool - Questions: Length of Stay (in days): 2 Acuity (Admit via E.D.?): Yes E.D. Visits: 1 - Answers: Total Score: 6 Risk of Readmission: Low Risk Care Management Discharge Reason for Hospitalization: Pancreatitis Discharge Plan: Judy will return home when ready per MD. She will follow up with her PCP and plan of care as prescribed. She will transport via private vehicle with family. Patient/Family Education Needs: Review discharge instructions, discuss Ask Me Three.
== END 2020-04-26 11:16 | disposition home or self-care (01) | DRG 440 ==
PROVIDERS: Admitting Provider Family Medicine; PCP Nurse Practitioner Family; Visit Provider Family Medicine
DX: K85.00 Idiopathic acute pancreatitis without necrosis or infection (principal); K76.0 Fatty (change of) liver, not elsewhere classified; E78.1 Pure hyperglyceridemia; Z87.891 Personal history of nicotine dependence; G47.00 Insomnia, unspecified; G43.909 Migraine, unspecified, not intractable, without status migrainosus
CPT/HCPCS: 36415; 80053; 99222; 99232; 99239; J1650; 74177; 76700; 85025; J0780; J2270; J2405; J3490

== ENCOUNTER 2020-05-08 23:58 | Emergency (ER) | payer OTHER, SELFPAY ==
[2020-05-09] VITALS (13 sets, daily range): BP systolic 122–148; BP diastolic 71–89; PULSE 55–71; RESP 16; TEMP 36.2; O2SAT 97–99
--- NOTE | 2020-05-09 | RT.EKG_ITS ---
APPROVED REPORT Exam: Resting ECG Patient Location: E HR:56 bpm ECG Measurements Heart Rate 56 AXIS NC 157 P 57 QRSd 84 QRS 36 QT 425 T 28 QTc 409 Conclusion Sinus bradycardia...rate< 60 Low voltage, precordial leads...precordial leads <1.0mV I have reviewed and interpreted ECG and agree with software generated interpretation. No stemi Otherwise normal ECG
--- NOTE | 2020-05-09 00:11 | W.ED.GENAD ---
Discharge Plan Disposition Patient Disposition: HOME Condition: Good Discharge Details Clinical Impression: Acute pancreatitis, Urinary tract infection Primary Care Provider: Sanaz Escobar ED Provider: Tino Vidal Home Meds and New Rx's Prescriptions: New cephalexin 500 mg capsule 500 mg PO BID 7 Days Qty: 14 RF: 0 ondansetron HCl [Zofran] 4 mg tablet 4 mg PO Q8H Qty: 12 RF: 0 Continued trazodone 100 mg tablet 100 mg PO HS RF: 0 Discharge Instructions Instructions: Pancreatitis (ED), Urinary Tract Infection in Women (ED) Additional Instructions: At this time you have evidence of very mild pancreatitis which shows notable improvement from your last admission 2 weeks ago. Please avoid any significant foods for the next few days and stick with a clear liquid diet of nonfatty broth, Jell-O, and water. You can gradually advance your diet towards regular foods after 2 to 3 days of this clear liquid diet. Please take Tylenol or ibuprofen as needed for pain. Please take the Keflex antibiotic for treatment of your urinary tract infection. If you notice any worsening of your symptoms, or any new symptoms such as vomiting, diarrhea, fever, chills, shortness of breath, chest pain, numbness, weakness, or fainting , please return immediately to the emergency department for reevaluation. Please follow up with your primary care provider as soon as possible for reassessment and reevaluation. As always, it was a pleasure participating in your medical care today. Your 2 prescriptions for Keflex and Zofran have been faxed to your pharmacy on file. Referrals: Robby No [ [facility] STAFF PHYSICIAN] - Medical Decision Making This is a pleasant 54-year-old female with a past medical history of pancreatitis in 2013, as well as just recently 2 weeks ago, fatty liver disease, previous C-sections, who presents today for evaluation of epigastric discomfort. Patient states that for the last 12 hours she has had mild abdominal fullness and mild epigastric pain. Which she describes as nearly identical to her last episodes of pancreatitis. She denies any new or spicy foods. She denies any significant alcohol intake. On her last admission just [address] scan and ultrasound were unremarkable aside from mild fatty liver disease. No pancreatic abscesses or cysts, no evidence of gallstones. Patient denies any vomiting but does admit to nausea. She denies any diarrhea. She denies any fever or chills. She denies any chest pain, shortness of breath, arm neck or shoulder pain, bandlike sensation around her chest. No history of cardiac disease. No other complaints at this time. Of note on her last admission at her discharge her oral estrogen was stopped as it was concerning that this may have been the cause of her pancreatitis. Physical exam is notably reassuring. Mild epigastric tenderness, no pain at McBurney's point, negative Welch sign. Symptoms appearing consistent with cardiac etiology. We will get a screening troponin and EKG out of precaution though. Symptoms are more concerning for mild acute pancreatitis. Gallbladder pathology appears unlikely given her physical exam findings. With her recent negative imaging, I see no indication currently to do emergent repeat imaging at this time. We will start with labs and then reevaluate. Will monitor closely, gently rehydrate and reassess. 1:16 AM Patient's laboratory work-up has returned, no white count bandemia or left shift. Electrolytes stable, renal function stable. Normal bilirubin. Normal troponin, unremarkable EKG. Lipase is 1600 which is notably decreased from the previous level of 9000 that she had 2 weeks ago. Transaminases are stable compared to prior labs. Urinalysis shows notable urinary tract infection, I did discuss this with the patient she now does admit to feeling mild discomfort in the groin occasionally with urination, but otherwise denies frequency or significant burning. Exam is inconsistent with appendicitis. Will give a gram of ceftriaxone here and a prescription for Keflex for home. On reassessment patient feels much better, and states that she feels ready to go home. She has been able to tolerate p.o. without challenge. Patient at this time does not demonstrate indications for admission, and in addition to this she would like to go home. Repeat abdominal exam continues to show no signs of acute surgical abdomen. No indication for emergent imaging especially in conjunction with labs. Symptoms a inconsistent with acute cholecystitis. Patient will be discharged. Discussed red flags which to return. Discussed appropriate eating habits for the next few days. She does have close follow-up with Dr. Gregorio in 48 hours. I have extensively reviewed the treatment plan and discharge instructions with the patient. I have addressed all patient concerns at this time. The patient was made aware of what symptoms to monitor for that would warrant a return to the emergency department. Discussed the plan with the patient, they demonstrate verbal understanding and agreement with our assessment and plan at this time. The documentation in this chart was dictated using [employer] dictation software. Please excuse any dictation errors. HPI General Date/Time Provider Initiated Documentation: 05/09/20 00:06. HPI Narrative: This is a pleasant 54-year-old female with a past medical history of pancreatitis in 2013, as well as just recently 2 weeks ago, fatty liver disease, previous C-sections, who presents today for evaluation of epigastric discomfort. Patient states that for the last 12 hours she has had mild abdominal fullness and mild epigastric discomfort which she describes as nearly identical to her last episodes of pancreatitis. She denies any new or spicy foods. She denies any significant alcohol intake. On her last admission just [address] scan and ultrasound were unremarkable aside from mild fatty liver disease. No pancreatic abscesses or cysts, no evidence of gallstones. Patient denies any vomiting but does admit to nausea. She denies any diarrhea. She denies any fever or chills. She denies any chest pain, shortness of breath, arm neck or shoulder pain, bandlike sensation around her chest. No history of cardiac disease. No other complaints at this time. Of note on her last admission at her discharge her oral estrogen was stopped as it was concerning that this may have been the cause of her pancreatitis. Related Data Home Medications Medication Instructions Recorded Confirmed trazodone 100 mg PO HS 04/25/20 05/09/20 cephalexin 500 mg PO BID 7 Days #14 cap 05/09/20 ondansetron HCl [Zofran] 4 mg PO Q8H #12 tab 05/09/20 Previous Rx's Medication Instructions Recorded cephalexin 500 mg PO BID 7 Days #14 cap 05/09/20 ondansetron HCl [Zofran] 4 mg PO Q8H #12 tab 05/09/20 Allergies Allergy/AdvReac Type Severity Reaction Status Date / Time erythromycin base AdvReac Intermediate vomit Verified 05/09/20 00:13 Review of Systems All systems reviewed & are unremarkable except as noted in HPI and below PFSH Medical History Dyspareunia, female Insomnia Migraine OCCASIONAL; MSG Nonalcoholic fatty liver disease Pancreatitis a. First episode, uncertain etiology. Tobacco use Vaginal atrophy Surgical History section x 3 Tonsillectomy and adenoidectomy Family History Mother Essential hypertension Anxiety Depression Mental disorder Chronic obstructive lung disease Father Heart disease Myocardial infarction Grandfather Heart disease Grandmother Neoplasm LUNG Son Diabetes Essential hypertension Pancreatitis, alcoholic, acute Social History Smoking/Tobacco Use Status: Former Tobacco Use Quit Date: 12/16/18 Smoking risk assessment performed?: Yes Alcohol Intake: current Alcohol Intake frequency: holidays/special occasions only Alcohol type: beer and wine Drug use: Never Substance use type: does not use Do you feel safe at home: Yes Do you feel safe in your relationship?: Yes Additional Social history: Patient lives with her and son. 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 History History 4 Para 3 Hx # Term Pregnancies Multiple births Hx # Pregnancies Ectopic pregnancies AB induced Hx Number of Living Children AB spontaneous Exam Narrative Exam Narrative: 1.Const: Well-nourished, Well-developed, appearing stated age 2.Eyes: PERRL, no conjunctival injection, and symmetrical lids. 3.ENT: Atraumatic external nose and ears. Moist MM. Neck: Symmetric, trachea midline, No thyromegaly. 4.CVS: +S1/S2, No murmurs or gallops. Peripheral pulses 2+ and equal in all extremities. Brisk capillary refill in all extremities. 5.RESP: Unlabored respiratory effort. Clear to auscultation bilaterally. No wheezes rales or rhonchi 6.GI: Soft, minimal bloating, mild epigastric discomfort. No pain at McBurney's point, negative Welch sign. No signs of an acute surgical abdomen. 7.MSK: Normocephalic/Atraumatic, Extremities w/o deformity or ttp No cyanosis or clubbing, Normal movement of all extremities 8.Skin: Warm, Dry. No rashes or lesions. 9.Neuro: napper fixer II-XII grossly intact. Sensation grossly intact, no focal neurologic deficits. 10.Psych: (AAO) x3. Appropriate mood and affect
[2020-05-09 00:27] LABS: Abs Immature Grans 0.05 10^3/uL (0.0-0.06); Absolute Basophil Count 0.06 10^3/uL (0.0-0.2); Absolute Eosinophil Count 0.38 10^3/uL (0.0-0.7); Absolute Lymphocyte Count 2.99 10^3/uL (1.2-3.4); Absolute Monocyte Count 0.65 10^3/uL (0.1-0.8); Absolute Neutrophil Count 5.71 10^3/uL (1.2-6.7); Basophils % 0.6; Eosinophils % 3.9; HCT 41.1 % (36.0-46.0); HGB 13.9 g/dL (11.2-15.7); Immature Grans % 0.5; Lymphocytes % 30.4; MCH 29.8 pg (27.0-33.0); MCHC 33.8 % (32.0-36.0); MPV 10.9 fL (8.0-11.0); Monocytes % 6.6; Nucleated RBC 0 %; Platelet Count 213 10^3/uL (130-400); RBC 4.67 10^6/uL (3.93-5.22); RDW 11.9 % (11.7-14.6); RDW-SD 38.5 fL; WBC 9.84 10^3/uL (4.4-10.8)
[2020-05-09] MEDS: Normal Saline 1,000 ML 1000 ML IV (00:28)
[2020-05-09] MEDS: Ketorolac 30 MG/ML VIAL IVP (00:28)
[2020-05-09 00:33] LABS: Bilirubin Negative (Negative); Blood Negative (Negative); Clarity Clear (Clear); Glucose Negative (Negative); Ketones Negative (Negative); Leukocyte Esterase Large (Negative); Nitrite Negative (Negative); Specific Gravity 1.025 (1.005-1.025); Urobilinogen 0.2 EU/dL (Up TO 0.2)
[2020-05-09 00:44] LABS: ALT 89 U/L (14-59); AST 34 U/L (15-37); Albumin 3.6 g/dL (3.4-5.0); Alkaline Phosphatase 144 U/L (46-116); Anion Gap 12.4 mmol/L (3-11); BUN 15 mg/dL (7-18); Bilirubin, Total 0.3 mg/dL (0.2-1.0); CO2 23.6 mmol/L (21.0-32.0); CREATININE 1.1 mg/dL (0.55-1.02); Chloride 102 mmol/L (98-107); Estimated GFR 51.76 (mL/min/1.73m2); Glucose 201 mg/dL (74-106); Sodium 138 mmol/L (136-145); Total Protein 7.1 g/dL (6.4-8.2)
[2020-05-09 00:50] LABS: Lipase 1632 U/L (73-393); Troponin I < 0.05 ng/mL (<0.06)
[2020-05-09 00:52] LABS: Bacteria Few HPF (Negative); C & S Indicated? Yes; Casts Negative LPF (Negative); Crystals Negative HPF (Negative); Epithelial Cells Few HPF (Negative); Mucus Negative (Negative); RBC 0-2 HPF (0-2); WBC >50 HPF (0-5)
[2020-05-09] MEDS: cefTRIAXone 1 GM/50 ML BAG IVPB (01:30)
[2020-05-09] MEDS: Ondansetron O.D.T. 4 MG TABEF, 3 TABS/BTL PO (01:35)
== END 2020-05-09 01:55 | disposition home or self-care (01) ==
PROVIDERS: Emergency Provider Student in an Organized Health Care Education/Training Program; PCP Nurse Practitioner Family
DX: K85.80 Other acute pancreatitis without necrosis or infection (principal); N39.0 Urinary tract infection, site not specified
CPT/HCPCS: 36415; 80053; 81025; 83690; 93005; 96361; 96365; 96375; 99284; 81003; 81015; 84484; 85025; 87086; 93010; 99285; J0696; J1885

== ENCOUNTER 2020-06-05 17:04 | Outpatient (REF) | payer OTHER, SELFPAY | END 2020-06-05 17:05 | disposition home or self-care (01) | LOC: NCHCN 17:04 | PROVIDERS: PCP Nurse Practitioner Family; Visit Provider Family Medicine | DX: N39.0 Urinary tract infection, site not specified (principal) | CPT/HCPCS: 87086 ==

== ENCOUNTER 2020-06-06 07:36 | Outpatient (REF) | payer OTHER, SELFPAY ==
[2020-06-06 14:13] LABS: ALT 87 U/L (14-59); AST 47 U/L (15-37); Albumin 3.6 g/dL (3.4-5.0); Alkaline Phosphatase 120 U/L (46-116); Anion Gap 11.3 mmol/L (3-11); BUN 18 mg/dL (7-18); Bilirubin, Total 0.3 mg/dL (0.2-1.0); CO2 25.7 mmol/L (21.0-32.0); CREATININE 1.1 mg/dL (0.55-1.02); Calcium 8.8 mg/dL (8.5-10.1); Chloride 104 mmol/L (98-107); Estimated GFR 51.76 (mL/min/1.73m2); Glucose 166 mg/dL (74-106); Lipase 977 U/L (73-393); Sodium 141 mmol/L (136-145); Total Protein 6.3 g/dL (6.4-8.2)
== END 2020-06-06 07:37 | disposition home or self-care (01) ==
LOC: LBN 07:36
PROVIDERS: PCP Nurse Practitioner Family; Visit Provider Family Medicine
DX: K85.90 Acute pancreatitis without necrosis or infection, unspecified (principal)
CPT/HCPCS: 80053; 83690

== ENCOUNTER 2020-06-07 18:50 | Outpatient (REF) | payer OTHER, SELFPAY ==
[2020-06-14 10:00] LABS: Chlamydia Result Negative (Negative); GC Result Negative (Negative)
== END 2020-06-07 18:51 | disposition home or self-care (01) ==
LOC: NCHCN 18:50
PROVIDERS: PCP Nurse Practitioner Family; Visit Provider Family Medicine
DX: R30.0 Dysuria (principal); Z11.3 Encounter for screening for infections with a predominantly sexual mode of transmission
CPT/HCPCS: 87491; 87591

== ENCOUNTER 2020-06-29 09:13 | Outpatient (REF) | payer OTHER, SELFPAY ==
--- NOTE | 2020-06-29 08:45 | PAPFT_PTH ---
PATIENT: Judy Louie LOC: [facility] U#:[id number] AGE/SX: 54/F ROOM: RE06/29/[address]: Shayla Peck : 1965 BED: DIS: 06/29/2020 SPEC #: [id number] RECD: 06/29/20 12:52 STATUS: ASHLEIGH RERachel #: [id number] RACHANA: 06/29/20 08:[address]: Shayla Peck DEPT: [facility] Cytology RECD BY: Jeanine Velasquez ENTERED: 06/29/20 12:52 SP TYPE: PAPFT OTHR DR: Sanaz Escobar Tissues: 1 - CX/ENDOCX FOR PAP SMEARS Procedures: PAP THIN PREP/UVM Screening HPV DNA PROBE Comments: [id number]
== END 2020-06-29 09:14 | disposition home or self-care (01) ==
LOC: LBN 09:13
PROVIDERS: PCP Nurse Practitioner Family; Visit Provider Obstetrics & Gynecology Gynecology
DX: Z12.4 Encounter for screening for malignant neoplasm of cervix (principal); Z11.51 Encounter for screening for human papillomavirus (HPV)
CPT/HCPCS: 88142; 87624

== ENCOUNTER 2020-08-01 12:49 | Outpatient (REF) | payer OTHER, SELFPAY ==
[2020-08-01 16:10] LABS: ALT 262 U/L (14-59); AST 130 U/L (15-37); Albumin 4.1 g/dL (3.4-5.0); Alkaline Phosphatase 221 U/L (46-116); Anion Gap 10.1 mmol/L (3-11); BUN 13 mg/dL (7-18); Bilirubin, Total 0.5 mg/dL (0.2-1.0); CO2 26.9 mmol/L (21.0-32.0); CREATININE 1.1 mg/dL (0.55-1.02); Calcium 9.5 mg/dL (8.5-10.1); Chloride 97 mmol/L (98-107); Estimated GFR 51.76 (mL/min/1.73m2); Glucose 455 mg/dL (74-106); Lipase 309 U/L (73-393); Potassium 4.8 mmol/L (3.5-5.1); Sodium 134 mmol/L (136-145); TSH (W/Ref FT4) 1.91 uIU/mL (0.36-3.74)
[2020-08-02 18:15] LABS: C-Peptide 3.7 ng/mL (1.1 - 4.4)
== END 2020-08-01 12:50 | disposition home or self-care (01) ==
LOC: NCHCN 12:49
PROVIDERS: PCP Family Medicine; Visit Provider Family Medicine
DX: K76.0 Fatty (change of) liver, not elsewhere classified (principal); E11.65 Type 2 diabetes mellitus with hyperglycemia; Z87.19 Personal history of other diseases of the digestive system
CPT/HCPCS: 80053; 83690; 84443; 84681

== ENCOUNTER 2020-10-02 16:55 | Outpatient (REF) | payer OTHER, SELFPAY ==
[2020-10-02 20:17] LABS: ALT 63 U/L (14-59); AST 33 U/L (15-37); Albumin 3.9 g/dL (3.4-5.0); Alkaline Phosphatase 101 U/L (46-116); Bilirubin, Direct 0.1 mg/dL (0.0-0.2); Bilirubin, Total 0.4 mg/dL (0.2-1.0); Lipase 36 U/L (73-393); Total Protein 6.7 g/dL (6.4-8.2)
== END 2020-10-02 16:56 | disposition home or self-care (01) ==
LOC: NCHCN 16:55
PROVIDERS: PCP Family Medicine; Visit Provider Family Medicine
DX: R79.89 Other specified abnormal findings of blood chemistry (principal); R11.2 Nausea with vomiting, unspecified
CPT/HCPCS: 80076; 83690

== ENCOUNTER 2021-02-17 16:21 | Outpatient (REF) | payer OTHER, SELFPAY ==
[2021-02-18 10:38] LABS: COVID-19 RT-PCR UVMMC Result Negative (Negative)
== END 2021-02-17 16:22 | disposition home or self-care (01) ==
LOC: LBN 16:21
PROVIDERS: PCP Family Medicine; Visit Provider Physician Assistant Medical
DX: Z20.822 Contact with and (suspected) exposure to COVID-19 (principal); J02.9 Acute pharyngitis, unspecified
CPT/HCPCS: U0003

== ENCOUNTER → 2021-06-19 00:56 | Outpatient (CLI) | payer OTHER, SELFPAY ==
--- NOTE | 2021-06-19 08:22 | DI.CTLCSR_ITS ---
Exam(s) CT CHEST LUNG CANCER SCREEN EXAM: CT CHEST LUNG CANCER SCREEN CLINICAL HISTORY: SCREENING FOR LUNG CANCER, FORMER SMOKER Z87.891, PREVENTIVE CARE Z00.00. TECHNIQUE: Imaging Protocol: Low Dose Technique CONTRAST MATERIAL: None COMPARISON: No exams were available for comparison FINDINGS: CHEST: LUNGS: There is a 4 millimeter noncalcified nodule in the superior segment of the right lower lobe. Mild benign-appearing subpleural markings seen in the lateral aspect of the right middle lobe. No pl eural effusions.. In the opposite-left lung there is a tiny 2 millimeter calcified granuloma in the lateral aspect of t he left lower lobe. Also some benign-appearing increased markings in the lingular segment. There is also a noncalcified pleural base nodule measuring 4 x 3 millimeters in the lateral basal segment of the left lower lobe. There are no pleural effusions on either side. There are no significant focal findings in the trachea and mainstem bronchi.. MEDIASTINUM: There is no obvious hilar nor mediastinal adenopathy. CARDIAC: Heart size is normal. There is no pericardial effusion.Caliber of the thoracic aorta is wit hin normal limits. OTHER: Hepatic steatosis noted. OSSEOUS: No significant osseous lesions.. IMPRESSION: 1. Small bilateral lung nodules as described individually above. Recommend six-month follow-up CT sc an. 2. No pleural effusions and there is no intrathoracic adenopathy. 3. Lung RADS Cat 3 - Probably Benign: Probably benign finding(s) - short term follow-up suggested; in clude nodules with a low likelihood of becoming a clinically active cancer. Lung-RADS 1.0 CATEGORIES: Category 0 - Prior chest CT exam(s) being located for comparison. Category 1 - Annual screening in 12 months. No nodules or definitely benign nodules. Category 2 - Annual screening in 12 months. Benign appearance. Nodules with low likelihood of becomin g active cancer. Category 3 - 6-month follow-up. Probably benign. Short-term follow-up suggested. Nodules with low lik elihood of becoming active cancer. Category 4A - 3-month follow-up and CT/PET if >8 mm in size. Suspicious finding. Findings which requi re additional testing. Category 4B - Findings which require additional testing and tissue sampling. Category 4X - Category 3 or 4 nodules with additional features or imaging findings that increases the suspicion of malignancy. Modifier S- Potentially clinically significant findings (non lung cancer) RADIATION DOSE DELIVERED: 73.21mGy.cm Total DLP 1.84mGyCTDIvol DATA REPOSITORY: All CT scans at this facility are submitted to the National Radiology Data Registry (NRDR) Dose Index Registry (DIR) with the [employer] ([employer]). RADIATION OPTIMIZATION: All CT scans at this facility use at least one of these dose optimization te chniques: automated exposure control; mA and/or kV adjustment per patient size (includes targeted exa ms where dose is matched to clinical indication); or iterative reconstruction.
--- NOTE | 2021-06-19 08:30 | DI.MAMMO_ITS ---
Exam(s) MAMMO SCREENING EXAM: MAMMO SCREENING CLINICAL HISTORY: PREVENTIVE CARE Z00.00, SCREENING FOR BREAST CANCER. TECHNIQUE: Bilateral full field digital CC and MLO mammographic images were obtained with 3D tomosyn thesis and utilizing computer aided detection (CAD). COMPARISON: Prior mammograms were reviewed, the most recent being March 2019. FINDINGS: There has been no change in the appearance distribution of the fibroglandular tissue. There are no new spiculated masses nor malignant appearing microcalcification groups. There is no significant architectural distortion nor skin thickening-retraction. IMPRESSION: No radiographic evidence of malignancy. BI-RADS Category 1 - Negative Breast Density - Category B - Scattered areas of fibroglandular density Breast density Category C or D implies that the patient has dense breast tissue. Dense breast tissue can make it harder to find cancer on a mammogram. Dense breast tissue is also associated with an incr eased risk of breast cancer. This information about the result of the mammogram report was provided to the patient to raise their awareness. Use this report when you speak with the patient about their risks for breast cancer, which includes their family history. At that time, you may recommend additional screening tests (Ultrasoun d or MRI) as these tests may add significant information. A negative radiographic report should not delay biopsy if a dominant or clinically suspicious mass is present. Up to ten percent of cancers are not identified on mammography. A negative report may reinforce clinical impression. Adenosis and dense breasts may obscure an underlying neoplasm. False positive reports average 6 to 10%. Patient will receive a letter notifying them of these results.
== END ==
PROVIDERS: PCP Family Medicine; Visit Provider Family Medicine
DX: Z00.00 Encounter for general adult medical examination without abnormal findings (principal); Z12.31 Encounter for screening mammogram for malignant neoplasm of breast; Z12.2 Encounter for screening for malignant neoplasm of respiratory organs; Z87.891 Personal history of nicotine dependence; R91.1 Solitary pulmonary nodule; J98.4 Other disorders of lung
CPT/HCPCS: 71271; 77063; 77067

== ENCOUNTER 2021-08-14 07:19 | Outpatient (REF) | payer OTHER, SELFPAY ==
[2021-08-14 15:08] LABS: HCT 41.5 % (36.0-46.0); HGB 14.1 g/dL (11.2-15.7); MCH 30.3 pg (27.0-33.0); MCV 89 fL (80-95); MPV 12.1 fL (8.0-11.0); Platelet Count 179 10^3/uL (130-400); RBC 4.66 10^6/uL (3.93-5.22); RDW-SD 39.2 fL; WBC 8.57 10^3/uL (4.4-10.8)
[2021-08-14 15:31] LABS: ALT 181 U/L (14-59); AST 90 U/L (15-37); Albumin 3.7 g/dL (3.4-5.0); Alkaline Phosphatase 143 U/L (46-116); Anion Gap 11.7 mmol/L (3-11); BUN 13 mg/dL (7-18); Bilirubin, Total 0.3 mg/dL (0.2-1.0); CO2 23.3 mmol/L (21.0-32.0); CREATININE 0.9 mg/dL (0.55-1.02); Calcium 9.2 mg/dL (8.5-10.1); Chloride 105 mmol/L (98-107); Glucose 135 mg/dL (74-106); Potassium 4.1 mmol/L (3.5-5.1); Sodium 140 mmol/L (136-145); Total Protein 6.9 g/dL (6.4-8.2)
== END 2021-08-14 07:20 | disposition home or self-care (01) ==
LOC: NCHCN 07:19
PROVIDERS: PCP Family Medicine; Visit Provider Family Medicine
DX: K76.0 Fatty (change of) liver, not elsewhere classified (principal); E11.9 Type 2 diabetes mellitus without complications
CPT/HCPCS: 80053; 85027

== ENCOUNTER 2021-11-20 21:45 | Outpatient (REF) | payer OTHER, SELFPAY ==
[2021-11-23 20:42] LABS: Result Summary NEGATIVE; Specimen WB Whole Blood
== END 2021-11-20 21:46 | disposition home or self-care (01) ==
LOC: NCHCN 21:45
PROVIDERS: PCP Family Medicine; Visit Provider Family Medicine
DX: R79.0 Abnormal level of blood mineral (principal)
CPT/HCPCS: 81256

== ENCOUNTER 2021-12-20 01:58 | Emergency (ER) | payer OTHER, SELFPAY ==
[2021-12-20 02:03] VITALS: BP 153/72; PULSE 77; RESP 16; TEMP 36.3; O2SAT 97
--- NOTE | 2021-12-20 02:21 | W.ED.GENAD ---
Discharge Plan Disposition Patient Disposition: HOME Condition: Improving Discharge Details Chief Complaint: Headache Clinical Impression: Influenza A Primary Care Provider: Robby No ED Provider: Miky Butler Home Meds and New Rx's Prescriptions: No Action clobetasol 0.05 % ointment 1 applic topical DAILY Qty: 45 0RF Rx Instructions: apply tiny amount to vulva daily Trulicity 3 mg/0.5 mL pen injector 3 mg subcut QWEEK Qty: 0.5 0RF metformin 500 mg tablet 500 mg PO BID Qty: 60 0RF hydroxyzine HCl 25 mg tablet 25 mg PO DAILY Label Comments: TAKE 1 TO 2 TABLETS BY MOUTH AT BEDTIME NEEDED FOR INSOMNIA Discharge Instructions Instructions: Influenza (ED) Additional Instructions: Please stay hydrated, continue with ibuprofen and/or acetaminophen as needed for fever/pain. Please return to the emergency department for worsening symptoms. Medical Decision Making 56-year-old female history of remote migraines presents with fevers headache dry cough over the past 2 days. Of note her is hospitalized with influenza A. Patient tested negative for influenza and COVID as an outpatient yesterday. Persistent headache, 1 episode nonbilious nonbloody vomiting. Patient is nonmeningeal afebrile moving all extremities nontoxic. Consider viral syndrome versus migraine versus tension headache versus less likely meningitis or intracranial hemorrhage or stroke. Will obtain basic labs, fluid hydration, antiemetics anti-inflammatory analgesia close reassessment of symptoms disposition pending results 3: 25 patient is positive for influenza A. Feeling much better after medications. Given home care instructions and return precautions. HPI General Date/Time Provider Initiated Documentation: 12/20/21 02:10. HPI Narrative: 56 yr old female hx of migraines, presents with two days of fever, cough, headache; currently hospitalized with influenza A Related Data Home Medications Medication Instructions Recorded Confirmed clobetasol 0.05 % topical ointment 1 applic topical DAILY #45 grams 06/29/20 12/20/21 dulaglutide 3 mg/0.5 mL 3 mg (0.5 mL) subcut QWEEK #0.5 mL 08/22/20 12/20/21 subcutaneous pen injector (Trulicity) metformin 500 mg tablet 500 mg PO BID #60 tabs 08/22/20 12/20/21 hydroxyzine HCl 25 mg tablet 25 mg PO DAILY 12/20/21 12/20/21 Previous Rx's Medication Instructions Recorded clobetasol 0.05 % topical ointment 1 applic topical DAILY #45 grams 06/29/20 dulaglutide 3 mg/0.5 mL 3 mg (0.5 mL) subcut QWEEK #0.5 mL 08/22/20 subcutaneous pen injector (Trulicity) metformin 500 mg tablet 500 mg PO BID #60 tabs 08/22/20 Allergies Allergy/AdvReac Type Severity Reaction Status Date / Time erythromycin base AdvReac Intermediate vomit Verified 12/20/21 02:08 General Stated Complaint: Headache LAURA: 3 Review of Systems Narrative: Review of Systems Constitutional: negative Eyes: negative ENT: negative Cardiovascular: negative Respiratory: negative Gastrointestinal: negative : negative Musculoskeletal: negative Skin: negative Neurologic: Headache Psych: negative PFSH All Active Problems (Updated 12/20/21 @ 03:27 by Miky Butler MD) Influenza A (Acute) Diabetes (Chronic) 07/2020. Onset 2mo after episode of pancreatitis. Rx Trulicity, Insulin and Metformin. Sensorineural hearing loss of both ears (Acute) Vulvar discomfort (Acute) Little response to topical estrogen. 06/2020 Rx with topical clobetasol Obstructive sleep apnea (Chronic) History of endometrial ablation (Acute) Dr. Cagle. Light menses afterwards. Unsure when menopause. Dyspareunia (Acute) 08/2020. improved with Clobetasol to vulva x2 mo. Will begin to use PRN. Lower abdominal pain (Acute) Acute pancreatitis (Acute) Urinary tract infection (Acute) DVT prophylaxis (Acute) Nonalcoholic fatty liver disease (Acute) Pancreatitis (Acute 08/23/13) Essential hypertriglyceridemia (Acute) Dryness of vagina (Acute) History of Surgical Procedure (Chronic) a. x3. b. Tonsillectomy. c. Adenoidectomy. d. Uterine ablation. Perimenopause (Chronic) Medical History (Updated 12/20/21 @ 03:27 by Miky Butler MD) Dyspareunia, female Insomnia Migraine OCCASIONAL; MSG Pancreatitis a. First episode, uncertain etiology. Pelvic pain Tobacco use Vaginal atrophy Surgical History (Updated 06/29/20 @ 12:33 by Shayla Peck MD) section x 3 Tonsillectomy and adenoidectomy Family History Mother Essential hypertension Anxiety Depression Mental disorder Chronic obstructive lung disease Father Heart disease Myocardial infarction Grandfather Heart disease Grandmother Neoplasm LUNG Son Diabetes Essential hypertension Pancreatitis, alcoholic, acute Social History Smoking/Tobacco Use Status: Former Tobacco Use Quit Date: 12/16/18 Smoking risk assessment performed?: Yes Alcohol Intake: current Alcohol Intake frequency: holidays/special occasions only Alcohol type: beer and wine Drug use: Never Substance use type: does not use Do you feel safe at home: Yes Do you feel safe in your relationship?: Yes Additional Social history: Patient lives with her and son. 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 Female Reproductive History Menstrual control method: permanent sterilization Menopause type: natural History History 4 Para 3 Hx # Term Pregnancies Multiple births Hx # Pregnancies Ectopic pregnancies AB induced Hx Number of Living Children AB spontaneous Exam Narrative Exam Narrative: Physical Examination General: alert, awake, cooperative, resting comfortably, no acute distress HEENT: normocephalic, atraumatic; PERRL, EOM intact, conjunctiva normal; no nasal discharge; moist mucous membranes, oral and pharyngeal mucosa normal, tolerating secretions Neck: supple, trachea midline; full ROM; nonmeningeal Chest: normal to inspection Respiratory: normal respiratory effort, speaking in full sentences, clear to auscultation, no wheezing, rales or rhonchi Cardiac: regular rate, regular rhythm, S1S2 intact, no murmurs rubs or gallops GI: abdomen soft, non-tender, non-distended; no palpable mass or hepatosplenomegaly Skin: no lesions, rashes or trauma appreciated Neuro: AAOx3, normal speech, moving all extremities; 5 out of 5 strength upper and lower extremities Psych: Appropriate mood and affect Course Vital Signs Vital signs: Vital Signs Temperature 36.3 C L 12/20/21 02:03 Pulse 77 12/20/21 02:03 Respiratory Rate 16 12/20/21 02:03 Blood Pressure 153/72 H 12/20/21 02:03 Pulse Oximetry 97 12/20/21 02:03 Temperature 36.3 C L 12/20/21 02:03 Temperature Source Temporal Artery Scan 12/20/21 02:03 Pulse 77 12/20/21 02:03 Respiratory Rate 16 12/20/21 02:03 Respiratory Effort 12/20/21 02:03 Blood Pressure 153/72 H 12/20/21 02:03 Blood Pressure Position Supine 12/20/21 02:03 Pulse Oximetry 97 12/20/21 02:03 Oxygen Delivery Method Room Air 12/20/21 02:03 Oxygen Flow Rate 0 12/20/21 02:03 Pain Level 10 12/20/21 02:03
[2021-12-20 02:29] LABS: Abs Immature Grans 0.04 10^3/uL (0.0-0.06); Absolute Basophil Count 0.04 10^3/uL (0.0-0.2); Absolute Eosinophil Count 0.25 10^3/uL (0.0-0.7); Absolute Lymphocyte Count 1.82 10^3/uL (1.2-3.4); Absolute Monocyte Count 0.82 10^3/uL (0.1-0.8); Absolute Neutrophil Count 4.03 10^3/uL (1.2-6.7); Basophils % 0.6; Eosinophils % 3.6; HCT 42.1 % (36.0-46.0); HGB 14.3 g/dL (11.2-15.7); Immature Grans % 0.6; MCH 30.1 pg (27.0-33.0); MCV 89 fL (80-95); MPV 11.5 fL (8.0-11.0); Monocytes % 11.7; Neutrophils % 57.5; Platelet Count 127 10^3/uL (130-400); RBC 4.75 10^6/uL (3.93-5.22); RDW 11.9 % (11.7-14.6); RDW-SD 38.5 fL
[2021-12-20] MEDS: Ondansetron 4 MG/2 ML VIAL IVP (02:35)
[2021-12-20] MEDS: Normal Saline 1,000 ML 1000 ML IV (02:35)
[2021-12-20] MEDS: Dexamethasone 10 MG/ML VIAL IVP (02:40)
[2021-12-20 02:43] LABS: ALT 277 U/L (14-59); AST 152 U/L (15-37); Albumin 3.8 g/dL (3.4-5.0); Alkaline Phosphatase 174 U/L (46-116); Anion Gap 10.1 mmol/L (3-11); BUN 8 mg/dL (7-18); Bilirubin, Total 0.6 mg/dL (0.2-1.0); CO2 25.9 mmol/L (21.0-32.0); CREATININE 0.9 mg/dL (0.55-1.02); Calcium 8.9 mg/dL (8.5-10.1); Chloride 105 mmol/L (98-107); Estimated GFR 75.03 (mL/min/1.73m2); Glucose 191 mg/dL (74-106); Sodium 141 mmol/L (136-145); Total Protein 7.4 g/dL (6.4-8.2)
[2021-12-20] MEDS: SUMAtriptan 6 MG/0.5 ML VIAL SC (02:50)
[2021-12-20 03:07] LABS: Bilirubin Negative (Negative); Blood Negative (Negative); Clarity Sl Cloudy (Clear); Glucose Negative (Negative); Ketones Negative (Negative); Leukocyte Esterase Moderate (Negative); Nitrite Negative (Negative); Specific Gravity >= 1.030 (1.005-1.025); Urobilinogen 0.2 EU/dL (Up TO 0.2)
[2021-12-20 03:16] LABS: COVID-19 PCR Negative (Negative); Influenza A PCR Positive (Negative); Influenza B PCR Negative (Negative); RSV PCR Negative (Negative)
[2021-12-20 03:20] LABS: Source Nasopharynx
[2021-12-20 03:26] LABS: Bacteria Few HPF (Negative); C & S Indicated? Yes; Crystals Negative HPF (Negative); Epithelial Cells Rare HPF (Negative); Mucus Moderate (Negative); Other Cells Rare Renal (Negative); RBC Negative HPF (0-2); WBC >50 HPF (0-5)
[2021-12-20 03:35] VITALS: BP 144/79; PULSE 69; RESP 16; TEMP 36.3; O2SAT 97
== END 2021-12-20 03:51 | disposition home or self-care (01) ==
PROVIDERS: Emergency Provider Emergency Medicine; PCP Family Medicine
DX: J10.1 Influenza due to other identified influenza virus with other respiratory manifestations (principal); Z20.822 Contact with and (suspected) exposure to COVID-19
CPT/HCPCS: 36415; 80053; 87637; 96361; 96372; 96374; 96375; 99284; 81003; 81015; 85025; 87086; 99283; J1100; J2405

== ENCOUNTER 2022-01-03 18:41 | Outpatient (REF) | payer OTHER, SELFPAY ==
[2022-01-03 16:44] LABS: Bilirubin Negative (Negative); Blood Negative (Negative); Clarity Cloudy (Clear); Glucose 100 mg/dL (Negative); Ketones Negative (Negative); Leukocyte Esterase Small (Negative); Nitrite Negative (Negative); Specific Gravity >= 1.030 (1.005-1.025)
[2022-01-03 16:52] LABS: Bacteria Rare HPF (Negative); C & S Indicated? Yes; Casts Negative LPF (Negative); Crystals Moderate Amorphous HPF (Negative); Epithelial Cells Rare HPF (Negative); Mucus Negative (Negative); RBC Negative HPF (0-2)
== END 2022-01-03 18:42 | disposition home or self-care (01) ==
LOC: NCHCN 18:41
PROVIDERS: PCP Family Medicine; Visit Provider Family Medicine
DX: R30.0 Dysuria (principal)
CPT/HCPCS: 81003; 81015; 87086

== ENCOUNTER 2022-03-25 08:35 | Outpatient (REF) | payer BC, SELFPAY ==
[2022-03-25 15:42] LABS: HCT 41.2 % (36.0-46.0); HGB 14.1 g/dL (11.2-15.7); MCHC 34.2 % (32.0-36.0); MCV 88 fL (80-95); MPV 12.2 fL (8.0-11.0); Platelet Count 187 10^3/uL (130-400); RDW 11.7 % (11.7-14.6); RDW-SD 37.7 fL; WBC 8.45 10^3/uL (4.4-10.8)
[2022-03-25 15:59] LABS: ALT 107 U/L (14-59); AST 63 U/L (15-37); Albumin 4.1 g/dL (3.4-5.0); Alkaline Phosphatase 177 U/L (46-116); Bilirubin, Direct 0.2 mg/dL (0.0-0.2); Bilirubin, Total 0.5 mg/dL (0.2-1.0); Total Protein 6.7 g/dL (6.4-8.2)
[2022-03-25 16:41] LABS: Calculated LDL 50 mg/dL (<100); Cholesterol 154 mg/dL (<200); HDL Cholesterol 40 mg/dL (40-60); Triglyceride 321 mg/dL (<150); Vitamin B12 335 pg/mL (193-986)
== END 2022-03-25 08:36 | disposition home or self-care (01) ==
LOC: NCHCN 08:35
PROVIDERS: PCP Family Medicine; Visit Provider Family Medicine
DX: D69.6 Thrombocytopenia, unspecified (principal); K76.0 Fatty (change of) liver, not elsewhere classified; E11.9 Type 2 diabetes mellitus without complications
CPT/HCPCS: 80061; 80076; 85027; 82607

== ENCOUNTER 2023-05-09 15:09 | Outpatient (REF) | payer BC, SELFPAY ==
[2023-05-09 15:55] LABS: HCT 40.6 % (36.0-46.0); HGB 13.8 g/dL (11.2-15.7); MCH 29.1 pg (27.0-33.0); MCV 86 fL (80-95); MPV 12.1 fL (8.0-11.0); Platelet Count 164 10^3/uL (130-400); RBC 4.74 10^6/uL (3.93-5.22); RDW 12.2 % (11.7-14.6); RDW-SD 38.1 fL; WBC 7.23 10^3/uL (4.4-10.8)
[2023-05-09 16:25] LABS: ALT 48 U/L (14-59); AST 28 U/L (15-37); Alkaline Phosphatase 118 U/L (46-116); Anion Gap 9.3 mmol/L (3-11); BUN 13 mg/dL (7-18); Bilirubin, Total 0.3 mg/dL (0.2-1.0); CO2 28.7 mmol/L (21.0-32.0); CREATININE 0.8 mg/dL (0.55-1.02); Calcium 9.4 mg/dL (8.5-10.1); Chloride 104 mmol/L (98-107); Estimated GFR 85.89 (mL/min/1.73m2); Glucose 109 mg/dL (74-106); Potassium 3.9 mmol/L (3.5-5.1); Sodium 142 mmol/L (136-145); Total Protein 6.7 g/dL (6.4-8.2)
[2023-05-09 17:09] LABS: Hemoglobin A1C 5.4 % (<5.7)
== END 2023-05-09 15:10 | disposition home or self-care (01) ==
LOC: NCHCN 15:09
PROVIDERS: PCP Family Medicine; Referring Provider Family Medicine; Visit Provider Family Medicine
DX: E11.9 Type 2 diabetes mellitus without complications (principal); K76.0 Fatty (change of) liver, not elsewhere classified
CPT/HCPCS: 80053; 85027; 83036

== ENCOUNTER → 2023-05-22 04:18 | Outpatient (CLI) | payer BC, SELFPAY ==
--- NOTE | 2023-05-22 07:40 | DI.MAMMO_ITS ---
Exam(s) MAMMO SCREENING EXAM: MAMMO SCREENING CLINICAL HISTORY: SCREENING, Z12.31 TECHNIQUE: Bilateral full field digital CC and MLO mammographic images were obtained with 3D tomosyn thesis and utilizing computer aided detection (CAD). COMPARISON: Available for comparison. FINDINGS: Masses/Architectural Distortion: There is an area of breast asymmetry in the posterior upper left tara ast on the MLO view. This may represent a summation of shadows but a spot compression views requeste d for further evaluation. Microcalcifications: No suspicious pleomorphic-type are seen. Skin Thickening/Nipple Retraction: None. IMPRESSION: 1. Asymmetric breast tissue in the posterior superior left breast on the MLO view. 2. Spot compression views requested for further evaluation. Limited ultrasound may be indicated at t hat time. BI-RADS Category 0 - Assessment Incomplete: Need additional imaging evaluation Breast Density - Category B - Scattered areas of fibroglandular density Breast density category C or D implies that the patient has dense breast tissue. Dense breast tissue is very common and is not abnormal but dense breast tissue can make it harder to find cancer on a ma mmogram. Also, dense breast tissue may increase their breast cancer risk. This information about the result of the mammogram report was provided to the patient to raise their awareness. Use this report when you speak with the patient about their risks for breast cancer, which includes their family hist ory. At that time, you may recommend for more screening tests (Ultrasound or MRI) as they might be us eful based on their risk. A negative radiographic report should not delay biopsy if a dominant or clinically suspicious mass is present. Up to ten percent of cancers are not identified on mammography. A negative report may reinforce clinical impression. Adenosis and dense breasts may obscure an underlying neoplasm. False positive reports average 6 to 10%. Patient will receive a letter notifying them of these results.
--- NOTE | 2023-05-22 07:50 | DI.CTLCSR_ITS ---
Exam(s) CT CHEST LUNG CANCER SCREEN EXAM: CT CHEST LUNG CANCER SCREEN CLINICAL HISTORY: FORMER SMOKER, SCREENING FOR LUNG CANCER, Z87.891 TECHNIQUE: Imaging Protocol: Axial computed tomography images with coronal and sagittal reformatted images were created and reviewed COMPARISON: CT CT CHEST LUNG CANCER SCREEN from 06/19/[address] CHEST WO from 01/17/2022 FINDINGS: Tracheobronchial tree: Patent where visualized. Pulmonary parenchyma: No consolidation or dominant measurable mass. No architectural distortion. Calc ified granuloma are present in the lungs. Mild centrilobular and paraseptal emphysematous changes ar e present in the lungs. Lung Nodules: There is a stable 4 mm peripheral left basilar nodule (series 3, image 463). There is again seen a 4 mm nodule in the superior segment of the right lower lobe medially (series 3, image 24 4). There is also again seen a 3 mm nodule in the medial aspect of the right upper lobe (series 3, i mage 145). Mediastinum and Amanda: No dominant adenopathy or fluid collection. The esophagus is unremarkable. Thyroid gland: Unremarkable. Lymph nodes: Unremarkable. Pleura: No effusion or pneumothorax. Heart: The heart is not dilated. Mild coronary artery calcification is present. No pericardial effus ion. Aorta: Thoracic aorta non-dilated.Atherosclerotic calcification of the thoracic aorta is present. Upper abdomen: Unremarkable. Soft Tissues: Unremarkable. Bones: Within normal limits. IMPRESSION: Stable pulmonary nodules. No new pulmonary nodules. Lung RADS Cat 2 - Benign Appearance / Behavior: Nodules with a very low likelihood of becoming a clin ically active cancer due to size or lack of growth Lung-RADS 1.0 CATEGORIES: Category 0 - Prior chest CT exam(s) being located for comparison. Category 1 - Annual screening in 12 months. No nodules or definitely benign nodules. Category 2 - Annual screening in 12 months. Benign appearance. Nodules with low likelihood of becomin g active cancer. Category 3 - 6-month follow-up. Probably benign. Short-term follow-up suggested. Nodules with low lik elihood of becoming active cancer. Category 4A - 3-month follow-up and CT/PET if >8 mm in size. Suspicious finding. Findings which requi re additional testing. Category 4B - Findings which require additional testing and tissue sampling. Suspicious finding. Category 4X - Category 3 or 4 nodules with additional features or imaging findings that increases the suspicion of malignancy. Modifier S- Potentially clinically significant finding. (Non lung cancer) RADIATION DOSE DELIVERED: Total DLP Total DLP DATA REPOSITORY: All CT scans at this facility are submitted to the National Radiology Data Registry (NRDR) Dose Index Registry (DIR) with the [employer] (A[employer]). RADIATION OPTIMIZATION: All CT scans at this facility use at least one of these dose optimization te chniques: automated exposure control; mA and/or kV adjustment per patient size (includes targeted exa ms where dose is matched to clinical indication); or iterative reconstruction.
== END ==
PROVIDERS: PCP Family Medicine; Visit Provider Family Medicine
DX: Z12.31 Encounter for screening mammogram for malignant neoplasm of breast (principal); Z12.2 Encounter for screening for malignant neoplasm of respiratory organs; Z87.891 Personal history of nicotine dependence; R91.1 Solitary pulmonary nodule
CPT/HCPCS: 71271; 77063; 77067

== ENCOUNTER → 2023-05-29 04:29 | Outpatient (CLI) | payer BC, SELFPAY ==
--- NOTE | 2023-05-29 08:50 | DI.MAMMO_ITS ---
Exam(s) MAMMO SCREEN CALL BACK UNI EXAM: MAMMO SCREEN CALL BACK UNI CLINICAL HISTORY: ASYMMETRIC DENSITY LEFT BREAST R92.8 ABNL MAMMO. TECHNIQUE: Craniocaudal and mediolateral oblique Full Field Digital Mammography views of the left br east with Computer Aided Diagnosis. COMPARISON: Comparison is made with prior examinations. FINDINGS: Mammography/Tomosynthesis: Masses/Architectural Distortion: The area of concern is not present on the additional views. No susp icious masses or areas of architectural distortion are seen. Microcalcifictions: No suspicious pleomorphic-type are seen. Skin Thickening/Nipple Retraction: None. IMPRESSION: 1. No evidence of malignancy is noted. 2. Unless there is more urgent need, follow-up screening mammography is recommended, as per [place] [employer] guidelines. 3. The findings were discussed with the patient on the date of the examination. BI-RADS Category 1 - Negative Breast Density - Category B - Scattered areas of fibroglandular density Breast density Category C or D implies that the patient has dense breast tissue. Dense breast tissue can make it harder to find cancer on a mammogram. Dense breast tissue is also associated with an incr eased risk of breast cancer. This information about the result of the mammogram report was provided to the patient to raise their awareness. Use this report when you speak with the patient about their risks for breast cancer, which includes their family history. At that time, you may recommend additional screening tests (Ultrasoun d or MRI) as these tests may add significant information. A negative radiographic report should not delay biopsy if a dominant or clinically suspicious mass is present. Up to ten percent of cancers are not identified on mammography. A negative report may reinforce clinical impression. Adenosis and dense breasts may obscure an underlying neoplasm. False positive reports average 6 to 10%. Patient will receive a letter notifying them of these results.
== END ==
PROVIDERS: PCP Family Medicine; Visit Provider Family Medicine
DX: Z12.31 Encounter for screening mammogram for malignant neoplasm of breast (principal); R92.8 Other abnormal and inconclusive findings on diagnostic imaging of breast
CPT/HCPCS: 77063; 77067

== ENCOUNTER 2024-03-09 16:49 | Outpatient (REF) | payer SELFPAY ==
[2024-03-09 19:33] LABS: Hemoglobin A1C 5.5 % (<5.7)
[2024-03-09 19:38] LABS: ALT 33 U/L (14-59); AST 23 U/L (15-37); Albumin 3.9 g/dL (3.4-5.0); Alkaline Phosphatase 109 U/L (46-116); BUN 19 mg/dL (7-18); Bilirubin, Total 0.38 mg/dL (0.2-1.0); Calcium 9.1 mg/dL (8.5-10.1); Calculated LDL 169 mg/dL (<100); Chloride 106 mmol/L (98-107); Cholesterol 284 mg/dL (<200); Glucose 98 mg/dL (74-106); HDL Cholesterol 51 mg/dL (40-60); Potassium 4.1 mmol/L (3.5-5.1); Sodium 142 mmol/L (136-145); Total Protein 6.5 g/dL (6.4-8.2); Triglyceride 324 mg/dL (<150)
== END 2024-03-09 16:50 | disposition home or self-care (01) ==
LOC: NCHCN 16:49
PROVIDERS: PCP Physician Assistant; Visit Provider Physician Assistant
DX: E11.9 Type 2 diabetes mellitus without complications (principal)
CPT/HCPCS: 80053; 80061; 83036

== ENCOUNTER 2024-08-03 16:06 | Outpatient (REF) | payer OTHER, SELFPAY ==
[2024-08-03 19:20] LABS: COMMENT (LAB VIEW ONLY) 180.69 mg/dL; Microalb ug/mg Crea 4.5 ug/mg Cr
== END 2024-08-03 16:07 | disposition home or self-care (01) ==
LOC: NCHCN 16:06
PROVIDERS: PCP Physician Assistant; Visit Provider Physician Assistant
DX: E11.9 Type 2 diabetes mellitus without complications (principal)
CPT/HCPCS: 82043; 82570

== ENCOUNTER 2025-01-24 09:32 | Outpatient (REF) | payer OTHER, SELFPAY ==
[2025-01-24 17:23] LABS: ALT 21 U/L (10-49); AST 25 U/L (<34); Albumin 4.4 g/dL (3.4-5.0); Alkaline Phosphatase 117 U/L (46-116); Anion Gap 8.9 mmol/L (3-11); BUN 18 mg/dL (9-23); Bilirubin, Total 0.40 mg/dL (0.2-1.2); CO2 28.1 mmol/L (20.0-31.0); Calcium 9.1 mg/dL (8.3-10.6); Chloride 106 mmol/L (98-107); Cholesterol 268 mg/dL (<200); Glucose 114 mg/dL (74-106); HDL Cholesterol 37 mg/dL (>40); Potassium 4.5 mmol/L (3.5-5.1); Sodium 143 mmol/L (136-145); Total Protein 6.5 g/dL (5.7-8.2)
[2025-01-24 17:27] LABS: Hemoglobin A1C 5.3 % (<5.7)
== END 2025-01-24 09:33 | disposition home or self-care (01) ==
LOC: NCHCN 09:32
PROVIDERS: PCP Physician Assistant; Visit Provider Physician Assistant
DX: E11.9 Type 2 diabetes mellitus without complications (principal)
CPT/HCPCS: 80053; 80061; 83721; 83036